=== PATIENT | male | born 1975 | race African-American/Black ===

== ENCOUNTER 2017-08-24 09:27 | Emergency (ER) | payer MEDICAID, SELFPAY ==
[2017-08-24 09:28] VITALS: BP 146/93; PULSE 62; RESP 18; TEMP 36.8; O2SAT 99; BMI 28.4
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
[2017-08-24] MEDS: Orphenadrine 60 MG/2 ML Ampul IM (10:19)
[2017-08-24] MEDS: Ketorolac 60 MG/2 ML Vial IM (10:19)
[2017-08-24 10:41] VITALS: BP 118/79; PULSE 82; RESP 15; O2SAT 97
== END 2017-08-24 10:42 | disposition home or self-care (01) ==
LOC: ED 10:23
PROVIDERS: Emergency Provider Emergency Medicine
DX: S16.1XXA Strain of muscle, fascia and tendon at neck level, initial encounter (principal); S39.012A Strain of muscle, fascia and tendon of lower back, initial encounter; V59.40XA Driver of pick-up truck or van injured in collision with unspecified motor vehicles in traffic accident, initial encounter; Y93.9 Activity, unspecified; Y92.410 Unspecified street and highway as the place of occurrence of the external cause; Y99.9 Unspecified external cause status
CPT/HCPCS: 72040; 72100; 96372; 99284